=== PATIENT | female | born 1945 | race Caucasian/White ===

== ENCOUNTER 2018-04-28 06:44 | Day surgery (SDC) | payer MEDICARE, BC ==
[2018-04-28] MEDS ORDERED: Sodium Chloride 0.9% 1,000 ML IV SCH (07:00)
[2018-04-28] MEDS ORDERED: fentaNYL 100 MCG/2 ML SDV ONE (07:20)
[2018-04-28] MEDS ORDERED: Propofol 200 MG/20 ML SDV ONE (07:20)
--- NOTE | 2018-04-28 15:24 | OR ---
DATE OF PROCEDURE: 04/28/2018 PROCEDURE: Colonoscopy. FINDINGS: 1. Ascending colon polyp, approximately 5 mm, completely removed using cold biopsy forceps. 2. Transverse colon polyp #1, approximately 5 mm, completely removed using cold biopsy forceps. 3. Transverse colon polyp #2, completely removed using cold biopsy forceps. 4. Sigmoid colon polyp #1, completely removed using hot snare, approximately 1 cm. 5. Sigmoid colon polyp #2, approximately 5 mm, completely removed using cold biopsy forceps. 6. Diverticulosis, mild, limited to sigmoid colon. COMPLICATIONS: None. BRINELL TESTER: None. PREOPERATIVE DIAGNOSIS: Screening colonoscopy. POSTOPERATIVE DIAGNOSIS: Screening colonoscopy. CONSENT: Risks, benefits, alternatives, and limitations including, but not limited to infection, bleeding, and perforation explained, and the patient wished to proceed. PROCEDURE IN DETAIL: The patient was placed in the left lateral decubitus position. Digital rectal exam was performed without abnormality. The scope was introduced and advanced atraumatically to the ileocecal valve. The scope was brought back through the ascending, transverse, descending colon, and retroflexed. The aforementioned polyps were all identified and completely removed. All removed using cold biopsy forceps, except for sigmoid colon polyp #1, which was removed using hot snare. Diverticulosis would be described as mild, limited to sigmoid colon without evidence of diverticulitis or bleeding. The patient tolerated the procedure well. Retroflex showed no abnormalities. Agustin Marrero MD /[id number]
== END 2018-04-28 09:35 | disposition home or self-care (01) ==
LOC: JP.SDS 06:44
PROVIDERS: ATTEND Surgery
DX: Z12.11 Encounter for screening for malignant neoplasm of colon (principal); D12.2 Benign neoplasm of ascending colon; D12.3 Benign neoplasm of transverse colon; D12.5 Benign neoplasm of sigmoid colon; K63.5 Polyp of colon; D17.5 Benign lipomatous neoplasm of intra-abdominal organs; K57.30 Diverticulosis of large intestine without perforation or abscess without bleeding; K21.9 Gastro-esophageal reflux disease without esophagitis; E78.5 Hyperlipidemia, unspecified; F41.9 Anxiety disorder, unspecified; Z87.891 Personal history of nicotine dependence
CPT/HCPCS: 45380; 45385; J2704; J3010; J7030; 88305

== ENCOUNTER 2018-12-03 12:01 | Emergency (ER) | payer BC, MEDICARE ==
[2018-12-03] MEDS ORDERED: Lactated Ringers 1,000 ML IV ONE (12:54)
[2018-12-03] MEDS ORDERED: Sodium Chloride 0.9% 10 ML Syringe FLUSH PRN (12:54)
--- NOTE | 2018-12-03 12:58 | EDM.PDOC ---
ED HPI GENERAL MEDICAL PROBLEM - General Chief Complaint: Lower Extremity Injury/Pain Stated Complaint: POSSIBLE BLOOD CLOT Time Seen by Provider: 12/03/18 12:56 Source of Information: Reports: Patient, Provider, RN Notes Reviewed History Limitations: Reports: No Limitations - History of Present Illness INITIAL COMMENTS - FREE TEXT/NARRATIVE: 73-year-old female presents emergency department today from clinic she was initially evaluated by Dr. Mcrae for pain in her left leg states she's had pain in left leg for the last 2-3 days progressively gotten worse ultrasound was performed is positive for popliteal and peroneal vein blood clot, she complains of pain in that leg as well as pain with a deep breath no other symptoms at this time. left leg Pain Score (Numeric/FACES): 7 - Related Data Allergies Allergy/AdvReac Type Severity Reaction Status Date / Time No Known Allergies Allergy Verified 12/03/18 12:46 Home Meds: Home Meds Alendronate Sodium [Fosamax] 70 mg PO Q7D 04/26/18 [History] FLUoxetine HCl [Prozac] 40 mg PO DAILY 04/26/18 [History] Pravastatin Sodium [Pravastatin (Pravachol)] 40 mg PO BEDTIME 04/26/18 [History] Ranitidine HCl [Zantac] 150 mg PO DAILY 04/26/18 [History] Ciprofloxacin HCl [Cipro] 500 mg PO ASDIRECTED 12/03/18 [History] Past Medical History HEENT History: Reports: Hard of Hearing, Impaired Vision Cardiovascular History: Reports: High Cholesterol Gastrointestinal History: Reports: GERD Genitourinary History: Reports: Urinary Incontinence 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, , 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 Musculoskeletal History: Reports: Back Pain, Chronic, Fracture, Osteoarthritis, Osteoporosis Psychiatric History: Reports: Depression Hematologic History: Reports: Blood Transfusion(s) Dermatologic History: Reports: Urticaria - Infectious Disease History Infectious Disease History: Reports: Chicken Pox, Measles, Mumps - Past Surgical History HEENT Surgical History: Reports: None Cardiovascular Surgical History: Reports: None GI Surgical History: Reports: Appendectomy, Cholecystectomy Female Surgical History: Reports: Breast Biopsy, Breast Reduction, D&C, Hysterectomy, Salpingo-Oophorectomy Musculoskeletal Surgical History: Reports: None Social & Family History - Caffeine Use Caffeine Use: Reports: Coffee Review of Systems - Review of Systems Review Of Systems: See Below Constitutional: Reports: No Symptoms Respiratory: Reports: Shortness of Breath (Pain with a deep breath) Cardiovascular: Denies: Chest Pain Musculoskeletal: Reports: Leg Pain ED EXAM, GENERAL - Physical Exam Exam: See Below Exam Limited By: No Limitations General Appearance: Alert, WD/WN, No Apparent Distress Neck: Normal Inspection, Supple, Non-Tender, Full Range of Motion Respiratory/Chest: No Respiratory Distress, Lungs Clear, Normal Breath Sounds, No Accessory Muscle Use, Chest Non-Tender Cardiovascular: Regular Rate, Rhythm, No Murmur Extremities: Normal Inspection, Normal Range of Motion, Leg Pain Course - Vital Signs Last Recorded V/S: Last Vital Signs Temp 98.2 F 12/03/18 12:43 Pulse 63 12/03/18 12:43 Resp 16 12/03/18 12:43 BP 128/86 12/03/18 12:43 Pulse Ox 91 L 12/03/18 12:43 - Orders/Labs/Meds Orders: Active Orders 24 hr Category Date Time Status Peripheral IV Care [RC] . DIRECTED Care 12/03/18 12:54 Active Iopamidol [Isovue-370 (76%)] Med 12/03/18 13:15 Active 100 ml IV . DIRECTED Sodium Chloride 0.9% [Normal Saline] 100 ml Med 12/03/18 13:15 Active IV ASDIRECTED Sodium Chloride 0.9% [Saline Flush] Med 12/03/18 12:54 Active 10 ml FLUSH ASDIRECTED PRN Peripheral IV Insertion Adult [OM.PC] Urgent Oth 12/03/18 12:54 Ordered Medication Orders Sodium Chloride (Normal Saline) 100 mls @ 3 mls/sec IV ASDIRECTED ERNIE Last Admin: 12/03/18 13:45 Dose: 3 mls/sec Iopamidol (Isovue-370 (76%)) 100 ml IV . DIRECTED ERNIE Last Admin: 12/03/18 13:45 Dose: 100 ml Sodium Chloride (Saline Flush) 10 ml FLUSH ASDIRECTED PRN PRN Reason: Keep Vein Open Last Admin: 12/03/18 14:03 Dose: 10 ml Labs: Laboratory Tests 12/03/18 12/03/18 12/03/18 Range/Units 12:58 12:58 12:58 WBC 11.2 H (4.5-11.0) K/uL RBC 4.90 (3.30-5.50) M/uL Hgb 14.6 (12.0-15.0) g/dL Hct 44.5 (36.0-48.0) % MCV 91 (80-98) fL MCH 30 (27-31) pg MCHC 33 (32-36) % Plt Count 225 (150-400) K/uL Neut % (Auto) 70 H (36-66) % Lymph % (Auto) 20 L (24-44) % Rogers % (Auto) 9 H (2-6) % Eos % (Auto) 1 L (2-4) % Baso % (Auto) 0 (0-1) % PT 9.9 (9.5-12.0) sec INR 0.89 (0.80-1.20) APTT 24.2 L (27.0-36.0) sec Sodium 137 L (140-148) mmol/L Potassium 4.0 (3.6-5.2) mmol/L Chloride 100 (100-108) mmol/L Carbon Dioxide 28 (21-32) mmol/L Anion Gap 13.0 (5.0-14.0) mmol/L BUN 12 (7-18) mg/dL Creatinine 0.9 (0.6-1.0) mg/dL Est Cr Clr Drug Dosing 46.05 mL/min Estimated GFR (MDRD) > 60 (>60) Glucose 99 (74-106) mg/dL Calcium 9.7 (8.5-10.1) mg/dL Total Bilirubin 0.5 (0.2-1.0) mg/dL AST 19 (15-37) U/L ALT 21 (12-78) U/L Alkaline Phosphatase 69 (46-116) U/L Total Protein 7.2 (6.4-8.2) g/dL Albumin 3.3 L (3.4-5.0) g/dL Globulin 3.9 H (2.3-3.5) g/dL Albumin/Globulin Ratio 0.9 L (1.2-2.2) Meds: Medications Generic Name Dose Route Start Last Admin Trade Name Freq PRN Reason Stop Dose Admin Sodium Chloride 100 mls @ 3 mls/sec 12/03/18 13:15 12/03/18 13:45 Normal Saline IV 3 mls/sec ASDIRECTED ERNIE Administration Iopamidol 100 ml 12/03/18 13:15 12/03/18 13:45 Isovue-370 (76%) IV 100 ml . DIRECTED ERNIE Administration Sodium Chloride 10 ml 12/03/18 12:54 12/03/18 14:03 Saline Flush FLUSH 10 ml ASDIRECTED PRN Administration Keep Vein Open Discontinued Medications Generic Name Dose Route Start Last Admin Trade Name Dion PRN Reason Stop Dose Admin Lactated Ringer's 1,000 mls @ 500 mls/hr 12/03/18 12:54 12/03/18 14:03 Ringers, Lactated IV 12/03/18 14:53 500 mls/hr ASDIRECTED ONE Administration Departure - Departure Time of Disposition: 15:54 Disposition: Home, Self-Care 01 Condition: Fair Clinical Impression: Pulmonary embolism Qualifiers: Pulmonary embolism type: unspecified Chronicity: acute Acute cor pulmonale presence: without acute cor pulmonale Qualified Code(s): I26.99 - Other pulmonary embolism without acute cor pulmonale - Discharge Information Referrals: Heidi Hernandez MD [Primary Care Provider] - Forms: ED Department Discharge Additional Instructions: Start your new medication 10 mg twice a day for 7 days and then 5 mg twice a day for the remainder the time please follow-up with your primary care in the next 7-10 days for reevaluation - My Orders Last 24 Hours: My Active Orders 12/03/18 12:54 Peripheral IV Care [RC] . DIRECTED Sodium Chloride 0.9% [Saline Flush] 10 ml FLUSH ASDIRECTED PRN Peripheral IV Insertion Adult [OM.PC] Urgent 12/03/18 13:15 Iopamidol [Isovue-370 (76%)] 100 ml IV . DIRECTED Sodium Chloride 0.9% [Normal Saline] 100 ml IV ASDIRECTED - Assessment/Plan Last 24 Hours: My Active Orders 12/03/18 12:54 Peripheral IV Care [RC] . DIRECTED Sodium Chloride 0.9% [Saline Flush] 10 ml FLUSH ASDIRECTED PRN Peripheral IV Insertion Adult [OM.PC] Urgent 12/03/18 13:15 Iopamidol [Isovue-370 (76%)] 100 ml IV . DIRECTED Sodium Chloride 0.9% [Normal Saline] 100 ml IV ASDIRECTED Plan: Assessment Acuity = acute Site and laterality = pulmonary embolism right lower lobe Etiology = unknown etiology Manifestations = none Location of injury = Home Lab values = CBC, CMP unremarkable CT scan BARROSO describes pulmonary embolism above Plan Because of vital signs are stable and she has had no issues while in the emergency department like to treat her as an outpatient restart Elaquis 10 mg by mouth twice a day 7 days followed by 5 mg twice a day remainder recommend follow-up primary care for reevaluation 7-10 days This note was dictated using [employer] voice recognition software please call with any questions on syntax or grammar.
[2018-12-03] MEDS ORDERED: Sodium Chloride 0.9% 100 ML IV SCH (13:15)
[2018-12-03] MEDS ORDERED: Iopamidol 755 Mg/ML 100 ML Bottle IV SCH (13:15)
--- NOTE | 2018-12-03 15:22 | CRLCT ---
INDICATION: Pain with deep breathing. Left leg DVT. Rule out pulmonary embolism. TECHNIQUE: Volumetric helical scanning of the thorax was performed during infusion of 100 cc of Isovue 370 contrast material IV, timing optimized for pulmonary arterial opacification. Coronal and sagittal reconstructions were obtained. COMPARISON: None. FINDINGS: The images are of acceptable quality and demonstrate uniform vascular enhancement within the pulmonary arteries. Acute embolus is demonstrated in the right lower lobe pulmonary artery. No other embolus is identified. The main pulmonary artery is enlarged, measuring up to 3.5 cm in diameter. The heart is mildly enlarged. No right ventricular strain is evident. The RV/LV ratio is 0.8. The lungs are low in volume. No infiltrate is evident. A tiny left pleural effusion is noted. No airway abnormality is evident. No mediastinal or hilar lymphadenopathy is demonstrated. A multinodular goiter is noted. Images of the upper abdomen demonstrate multiple liver cysts, a 2.2 cm left adrenal nodule and a number of colonic diverticula. IMPRESSION: 1. Acute pulmonary embolism with embolus demonstrated in the right lower lobe artery. 2. Mild cardiomegaly but no evidence of right ventricular strain. 3. Main pulmonary artery enlarged to 3.5 cm in diameter. 4. Lungs low in volume, clear. 5. Tiny left pleural effusion. 6. Multinodular goiter. 7. Nonspecific 2.2 cm left adrenal nodule. Comparison with any prior exam suggested. Otherwise, follow up CT scan utilizing adrenal adenoma protocol recommended. 8. Liver cysts. 9. Colonic diverticulosis. These findings were called to Officer at 3:20 p.m. on 12/03/2018. Please note that all CT scans at this facility use dose modulation, iterative reconstruction, and/or weight-based dosing when appropriate to reduce radiation dose to as low as reasonably achievable. Dictated by Rafael Park MD @ Dec 03 2018 3:09PM Signed by Dr. Rafael Park @ Dec 03 2018 3:21PM
== END 2018-12-03 16:09 | disposition home or self-care (01) ==
LOC: JP.ED 12:01
DX: I26.99 Other pulmonary embolism without acute cor pulmonale (principal); E78.00 Pure hypercholesterolemia, unspecified; Z79.899 Other long term (current) drug therapy
CPT/HCPCS: 36415; 71275; 80053; 85025; 85610; 85730; 96360; 99284; J7030; J7120; Q9967

== ENCOUNTER 2019-05-17 18:00 | Emergency (ER) | payer MEDICARE ==
--- NOTE | 2019-05-17 18:36 | EDM.PDOC ---
ED HPI GENERAL MEDICAL PROBLEM - General Chief Complaint: General Stated Complaint: MEDICAL VIA [facility] Time Seen by Provider: 05/17/19 18:10 Source of Information: Reports: Patient, EMS History Limitations: Reports: No Limitations - History of Present Illness INITIAL COMMENTS - FREE TEXT/NARRATIVE: 73-year-old female had a near syncopal episode while shopping at [employer]. She was standing in line talking to a friend when her vision got somewhat fuzzy, she didn't feel well, and then her legs got weak. She was helped to the floor. She did not when EMS called but they called her, by the time they arrived she was feeling back to normal but they insisted she be checked out. Glucose in route was 134. She has not eaten anything today as she is trying to lose weight. She also recently started smoking again to help her lose weight. - Related Data Allergies Allergy/AdvReac Type Severity Reaction Status Date / Time No Known Allergies Allergy Verified 12/03/18 12:46 Home Meds: Home Meds Alendronate Sodium [Fosamax] 70 mg PO Q7D 04/26/18 [History] FLUoxetine HCl [Prozac] 40 mg PO DAILY 04/26/18 [History] Pravastatin Sodium [Pravastatin (Pravachol)] 40 mg PO BEDTIME 04/26/18 [History] raNITIdine HCl [Zantac] 150 mg PO DAILY 04/26/18 [History] Past Medical History HEENT History: Reports: Hard of Hearing, Impaired Vision Cardiovascular History: Reports: High Cholesterol Gastrointestinal History: Reports: GERD Genitourinary History: Reports: Urinary Incontinence Other Genitourinary History: botox in the bladder 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, , 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 Musculoskeletal History: Reports: Back Pain, Chronic, Fracture, Osteoarthritis, Osteoporosis Psychiatric History: Reports: Depression Hematologic History: Reports: Blood Transfusion(s) Dermatologic History: Reports: Urticaria - Infectious Disease History Infectious Disease History: Reports: Chicken Pox - Past Surgical History HEENT Surgical History: Reports: None Cardiovascular Surgical History: Reports: None GI Surgical History: Reports: Appendectomy, Cholecystectomy Female Surgical History: Reports: Breast Biopsy, Breast Reduction, D&C, Hysterectomy, Salpingo-Oophorectomy Musculoskeletal Surgical History: Reports: None Social & Family History - Tobacco Use Smoking Status *Q: Current Some Day Smoker Years of Tobacco use: 60 Packs/Tins Daily: 0.5 Used Tobacco, but Quit: Yes Month/Year Tobacco Last Used: 3 three years ago - Caffeine Use Caffeine Use: Reports: Coffee - Recreational Drug Use Recreational Drug Use: No ED ROS GENERAL - Review of Systems Review Of Systems: See Below Constitutional: Denies: Fever, Chills HEENT: Reports: Vision Change (Vision was blurry just prior to near syncope), Other (Persistent recurring dizziness and vertigo) Respiratory: Denies: Shortness of Breath Cardiovascular: Denies: Chest Pain, Palpitations GI/Abdominal: Denies: Abdominal Pain, Nausea, Vomiting Skin: Reports: No Symptoms Neurological: Reports: Dizziness. Denies: Headache Psychiatric: Reports: Depression ED EXAM, GENERAL - Physical Exam Exam: See Below Exam Limited By: No Limitations General Appearance: Alert, No Apparent Distress Eye Exam: Bilateral Eye: Normal Inspection Head: Atraumatic Respiratory/Chest: No Respiratory Distress, Wheezing (A few scattered expiratory wheezes) Cardiovascular: Regular Rate, Rhythm. No: Extra Beats GI/Abdominal: Soft, Non-Tender Extremities: Normal Inspection Neurological: Alert, Oriented Psychiatric: Normal Affect, Normal Mood Skin Exam: Warm, Dry Course - Vital Signs Last Recorded V/S: Last Vital Signs Temp 97.5 F 05/17/19 18:20 Pulse 72 05/17/19 18:20 Resp 18 05/17/19 18:20 BP 103/59 L 05/17/19 18:20 Pulse Ox 92 L 05/17/19 18:20 - Re-Assessments/Exams Free Text/Narrative Re-Assessment/Exam: 05/17/19 19:10 EKG reviewed from EMS and showed no ST findings. Two-view chest x-ray was done that showed no infiltrate or congestive heart failure. The patient remained asymptomatic, walked around the emergency room department without symptoms. She was discharged with vasovagal near syncope. Departure - Departure Time of Disposition: 19:13 Disposition: Home, Self-Care 01 Clinical Impression: Near syncope - Discharge Information Instructions: Near-Syncope Referrals: Heidi Hernandez MD [Primary Care Provider] - Forms: ED Department Discharge Care Plan Goals: Continue your current medications, activity as tolerated and concentrate on staying hydrated. Return anytime if symptoms are recurring or persistent.
--- NOTE | 2019-05-17 19:15 | CRLCR ---
Indication: Dyspnea. Technique: Two views of the chest were obtained. Comparison: None Findings: The heart is borderline in size. The lungs are hyperinflated but clear. No infiltrate, pleural effusion, or pneumothorax is identified. Impression: Hyperinflation. Dictated by Amena Saavedra MD @ May 17 2019 7:13PM Signed by Dr. Amena Saavedra @ May 17 2019 7:14PM
== END 2019-05-17 19:20 | disposition home or self-care (01) ==
LOC: JP.ED 18:00
DX: R55 Syncope and collapse (principal); E78.00 Pure hypercholesterolemia, unspecified; K21.9 Gastro-esophageal reflux disease without esophagitis; F32.9 Major depressive disorder, single episode, unspecified; F17.210 Nicotine dependence, cigarettes, uncomplicated; Z79.899 Other long term (current) drug therapy
CPT/HCPCS: 71046; 99283; 99284-25

== ENCOUNTER 2020-05-06 06:04 | Day surgery (SDC) | payer MEDICARE ==
[2020-05-06] MEDS ORDERED: Sodium Chloride 0.9% 1,000 ML IV SCH (07:00)
[2020-05-06] MEDS ORDERED: fentaNYL 100 MCG/2 ML SDV ONE (07:10)
[2020-05-06] MEDS ORDERED: Propofol 200 MG/20 ML SDV ONE (07:10)
--- NOTE | 2020-05-06 13:14 | OR ---
DATE OF PROCEDURE: 05/06/2020 SURGEON: Agustin Marrero MD PROCEDURE: Colonoscopy. FINDINGS: 1. Sigmoid colon polyp, approximately 5 mm, completely removed using hot snare wire device. 2. Ascending colon polyp, approximately 5 mm, completely removed using cold biopsy forceps. 3. Transverse colon polyp #1, completely removed using hot snare wire device. 4. Transverse colon polyp #2, completely removed using cold biopsy forceps. 5. Transverse colon polyp #3, completely removed using hot snare wire device. 6. Descending colon polyp, approximately 5 mm, completely removed using hot snare wire device. 7. Sigmoid colon polyp, approximately 5 mm, completely removed using cold biopsy forceps. 8. Diverticulosis, moderate, mostly concentrated in the sigmoid colon. COMPLICATION: None. TRAIN PLANNER: None. ANESTHESIA: MAC. PREOPERATIVE DIAGNOSIS: Screening colonoscopy/history of colon polyps. POSTOPERATIVE DIAGNOSIS: Screening colonoscopy/history of colon polyps. RISKS: Risks, benefits, alternatives, and limitations including, but not limited to infection, bleeding, and perforation were explained to the patient, who wished to proceed. PROCEDURE IN DETAIL: The patient was placed in left lateral decubitus position. Digital rectal exam was performed without abnormality. Scope was introduced and advanced atraumatically to the ileocecal valve. A photo was taken of this. The scope was brought back through the colon, and the aforementioned polyps were all completely removed as described above. No abnormal bleeding was noted after the removals. Diverticulosis would be described as moderate, limited to sigmoid colon, without evidence of diverticulitis or bleeding. No evidence of colitis. No abnormalities on retroflexion. Greater than 10 minutes was spent removing the scope. The patient tolerated the procedure well. Agustin Marrero MD /[id number]
== END 2020-05-06 09:58 | disposition home or self-care (01) ==
LOC: JP.SDS 06:04
PROVIDERS: ATTEND Surgery
DX: Z12.11 Encounter for screening for malignant neoplasm of colon (principal); D12.2 Benign neoplasm of ascending colon; D12.3 Benign neoplasm of transverse colon; K57.30 Diverticulosis of large intestine without perforation or abscess without bleeding
CPT/HCPCS: 45380; 45385; 88305; J2704; J3010; J7030

== ENCOUNTER 2021-09-04 07:35 | Day surgery (SDC) | payer MEDICARE ==
[2021-09-04] MEDS ORDERED: Sodium Chloride 0.9% 10 ML Syringe FLUSH SCH (08:00)
== END 2021-09-04 09:05 | disposition home or self-care (01) ==
LOC: JP.SDS 07:35
PROVIDERS: ATTEND Ophthalmology
DX: H25.811 Combined forms of age-related cataract, right eye (principal)
CPT/HCPCS: 66984; V2632

== ENCOUNTER 2021-09-18 08:53 | Day surgery (SDC) | payer MEDICARE ==
[2021-09-18] MEDS ORDERED: Sodium Chloride 0.9% 10 ML Syringe FLUSH PRN (09:30)
== END 2021-09-18 10:25 | disposition home or self-care (01) ==
LOC: JP.SDS 08:53
PROVIDERS: ATTEND Ophthalmology
DX: H25.12 Age-related nuclear cataract, left eye (principal); E78.5 Hyperlipidemia, unspecified; K21.9 Gastro-esophageal reflux disease without esophagitis

== ENCOUNTER 2022-06-04 20:47 | Emergency (ER) | payer MEDICARE ==
[2022-06-04 23:07] LABS: CORONAVIRUS COVID-19 NAA POSITIVE (NEGATIVE)
== END 2022-06-04 23:55 | disposition home or self-care (01) ==
LOC: JP.ED 20:47
DX: U07.1 COVID-19 (principal); J40 Bronchitis, not specified as acute or chronic; E78.00 Pure hypercholesterolemia, unspecified; K21.9 Gastro-esophageal reflux disease without esophagitis; J44.9 Chronic obstructive pulmonary disease, unspecified; Z79.01 Long term (current) use of anticoagulants; Z79.899 Other long term (current) drug therapy; Z87.891 Personal history of nicotine dependence
CPT/HCPCS: 0241U; 36415; 71046; 80048; 85025; 86140; 87081; 87880; 99283

== ENCOUNTER 2022-11-27 06:51 | Day surgery (SDC) | payer MEDICARE, OTHER ==
[2022-11-27] MEDS ORDERED: fentaNYL 100 MCG/2 ML SDV ONE (07:20)
[2022-11-27] MEDS ORDERED: Propofol 200 MG/20 ML SDV ONE (07:20)
[2022-11-27] MEDS ORDERED: Sodium Chloride 0.9% 1,000 ML IV SCH (07:30)
== END 2022-11-27 10:00 | disposition home or self-care (01) ==
LOC: JP.SDS 06:51
PROVIDERS: ATTEND Surgery
DX: Z12.11 Encounter for screening for malignant neoplasm of colon (principal); D12.4 Benign neoplasm of descending colon; D12.3 Benign neoplasm of transverse colon; K57.30 Diverticulosis of large intestine without perforation or abscess without bleeding; I70.0 Atherosclerosis of aorta; K21.9 Gastro-esophageal reflux disease without esophagitis; F41.9 Anxiety disorder, unspecified; F32.A Depression, unspecified; E78.5 Hyperlipidemia, unspecified; Z86.010 Personal history of colon polyps
CPT/HCPCS: 45385; 88305; J2704; J3010; J7030

== ENCOUNTER 2023-06-04 07:25 | Day surgery (SDC) | payer MEDICARE ==
[~2023-06-04 07:25] MED LIST: Propofol 200 MG/20 ML SDV ONE; fentaNYL 100 MCG/2 ML SDV ONE
[2023-06-04] MEDS ORDERED: Sodium Chloride 0.9% 1,000 ML IV SCH (08:00)
== END 2023-06-04 10:49 | disposition home or self-care (01) ==
LOC: JP.SDS 07:25
PROVIDERS: ATTEND Surgery
DX: D12.3 Benign neoplasm of transverse colon (principal); K57.30 Diverticulosis of large intestine without perforation or abscess without bleeding; I70.0 Atherosclerosis of aorta; G31.9 Degenerative disease of nervous system, unspecified; F41.9 Anxiety disorder, unspecified; F32.A Depression, unspecified; Z79.899 Other long term (current) drug therapy; Z79.01 Long term (current) use of anticoagulants; Z86.711 Personal history of pulmonary embolism; Z86.718 Personal history of other venous thrombosis and embolism; Z87.891 Personal history of nicotine dependence
CPT/HCPCS: 88305; J2704; J3010; J7030

== ENCOUNTER 2024-01-30 13:14 | Emergency (ER) | payer MEDICARE | END 2024-01-30 14:01 | disposition left against medical advice (07) | LOC: JP.ED 13:14 | DX: Z53.21 Procedure and treatment not carried out due to patient leaving prior to being seen by health care provider (principal) ==

== ENCOUNTER 2024-03-24 16:41 | Emergency (ER) | payer MEDICARE | END 2024-03-24 18:05 | disposition home or self-care (01) | LOC: JP.ED 16:41 | DX: G50.0 Trigeminal neuralgia (principal); G44.89 Other headache syndrome; J44.9 Chronic obstructive pulmonary disease, unspecified; Z79.899 Other long term (current) drug therapy; Z79.01 Long term (current) use of anticoagulants | CPT/HCPCS: 70450; 70450-26; 99284 ==

== ENCOUNTER 2024-07-14 15:22 | Emergency (ER) | payer OTHER, MEDICARE ==
[2024-07-14] MEDS ORDERED: Sodium Chloride 0.9% 10 ML Syringe FLUSH PRN (15:37)
[2024-07-14 15:42] LABS: BASOPHILS ABSOLUTE AUTO 0.03 K/uL (0.00-0.10); BASOPHILS PERCENT AUTO 0.3 % (0.1-1.3); EOSINOPHILS ABSOLUTE AUTO 0.06 K/uL (0.00-0.40); EOSINOPHILS PERCENT AUTO 0.6 % (0.0-5.4); HEMATOCRIT 43.8 % (34.3-46.0); HEMOGLOBIN 15.1 g/dL (11.2-15.5); IMMATURE GRAN ABSOLUTE AUTO 0.06 K/uL (0.00-0.23); IMMATURE GRAN PERCENT AUTO 0.6 % (0.0-0.7); LYMPHOCYTES PERCENT AUTO 26.8 % (11.4-47.7); MEAN CORPUSCULAR HEMOGLOBIN 30.5 pg (31.6-35.5); MEAN CORPUSCULAR HGB CONC 34.5 g/dL (31.6-35.5); MEAN CORPUSCULAR VOLUME 88.5 fL (81.4-99.0); MONOCYTES ABSOLUTE AUTO 0.64 K/uL (0.20-0.90); MONOCYTES PERCENT AUTO 6.1 % (3.3-12.6); NEUTROPHILS ABSOLUTE AUTO 6.85 K/uL (1.0-7.6); NEUTROPHILS PERCENT AUTO 65.6 % (40.0-78.1); PLATELET COUNT,PLT 226 K/uL (130-375); RED BLOOD CELL COUNT 4.95 M/uL (3.77-5.24); WHITE BLOOD CELL COUNT,WBC 10.4 K/uL (3.2-11.0)
[2024-07-14 15:53] LABS: APPEARANCE,URINE CLOUDY (CLEAR); BILIRUBIN,URINE NEGATIVE (NEGATIVE); COLOR,URINE YELLOW (YELLOW); GLUCOSE,URINE NEGATIVE (NEGATIVE); KETONES,URINE NEGATIVE (NEGATIVE); LEUKOCYTE ESTERASE,URINE TRACE (NEGATIVE); NITRITE,URINE POSITIVE (NEGATIVE); OCCULT BLOOD,URINE SMALL (NEGATIVE); PROTEIN,URINE NEGATIVE (NEGATIVE); UROBILINOGEN,URINE 0.2 EU/dL (0.2-1.0)
[2024-07-14 15:59] LABS: A/G RATIO 0.7 (1.2-2.2); ALANINE AMINOTRANSFERASE,ALT 15 U/L (12-78); ALBUMIN 3.1 g/dL (3.4-5.0); ALKALINE PHOSPHATASE 80 U/L (46-116); ASPARTATE AMNIOTRANSFERASE,AST 23 U/L (15-37); BILIRUBIN TOTAL 0.5 mg/dL (0.2-1.0); BLOOD UREA NITROGEN,BUN 7 mg/dL (7-18); CARBON DIOXIDE,CO2 30 mmol/L (21-32); CHLORIDE,CL 100 mmol/L (100-108); CREATININE 0.7 mg/dL (0.6-1.0); EST CRCL DRUG DOSING (CG) 52.39 mL/min; ESTIMATED GFR 88 mL/min (>60); GLUCOSE RANDOM 104 mg/dL (74-106); POTASSIUM,K 3.8 mmol/L (3.6-5.2); PROTEIN TOTAL,TP 7.3 g/dL (6.4-8.2); SODIUM,NA 138 mmol/L (140-148)
[2024-07-14 16:04] LABS: ANION GAP 11.8 mmol/L (5.0-14.0)
[2024-07-14] MEDS: Iopamidol 612 MG/ML 100 ML Bottle IV SCH (16:07)
[2024-07-14] MEDS: Sodium Chloride 0.9% 60 ML IV SCH (16:07)
[2024-07-14 16:11] LABS: AMORPHOUS SEDIMENT,URINE NOT SEEN; BACTERIA,URINE MANY; EPITHELIAL CELLS,URINE RARE; MUCUS,URINE NOT SEEN; RBC,URINE 0-5 (0-5)
== END 2024-07-14 17:58 | disposition home or self-care (01) ==
LOC: JP.ED 15:22
DX: S20.219A Contusion of unspecified front wall of thorax, initial encounter (principal); N30.00 Acute cystitis without hematuria; J44.9 Chronic obstructive pulmonary disease, unspecified; F17.200 Nicotine dependence, unspecified, uncomplicated; Z90.49 Acquired absence of other specified parts of digestive tract; Z90.710 Acquired absence of both cervix and uterus; Z79.01 Long term (current) use of anticoagulants; Z79.899 Other long term (current) drug therapy; V49.40XA Driver injured in collision with unspecified motor vehicles in traffic accident, initial encounter
CPT/HCPCS: 36415; 71260; 73562; 80053; 81001; 84484; 85025; 87086; 87088; 87186; 93005; 99285; J3490; Q9967; 93010